=== PATIENT | male | born 1975 | race Caucasian/White ===

== ENCOUNTER 2020-08-17 10:17 | Outpatient (CLI) | payer BC | END 2020-08-17 10:18 | disposition home or self-care (01) | LOC: DTY/OP 10:17 | PROVIDERS: ATTEND Surgery | DX: E66.01 Morbid (severe) obesity due to excess calories (principal) | CPT/HCPCS: 97802 ==

== ENCOUNTER 2024-01-14 15:42 | Outpatient (CLI) | payer BC | END 2024-01-14 15:43 | disposition home or self-care (01) | LOC: SCSRAD 15:42 | PROVIDERS: ATTEND Internal Medicine Cardiovascular Disease | DX: I48.0 Paroxysmal atrial fibrillation (principal) | CPT/HCPCS: 71046 ==